=== PATIENT | female | born 1970 | race Caucasian/White ===

== ENCOUNTER → 2018-07-01 | Outpatient (CLI) | payer OTHER | END | disposition home or self-care (01) | LOC: CFH 14:56 | PROVIDERS: ATTEND Nurse Practitioner Family | DX: Z12.31 Encounter for screening mammogram for malignant neoplasm of breast (principal) | CPT/HCPCS: 77063; 77067 ==

== ENCOUNTER → 2018-07-14 | Outpatient (CLI) | payer OTHER | END | disposition home or self-care (01) | LOC: CFH 12:55 | PROVIDERS: ATTEND Nurse Practitioner Family | DX: N64.89 Other specified disorders of breast (principal) | CPT/HCPCS: 77065 ==

== ENCOUNTER 2018-07-28 08:29 | Outpatient (CLI) | payer OTHER ==
[2018-07-28] MEDS ORDERED: SODIUM BICARBONATE 4.2%, 5ML ONE (09:00)
[2018-07-28] MEDS ORDERED: LIDOCAINE 1%-EPI 1:100K, 20ML ONE (09:00)
[2018-07-28] MEDS ORDERED: LIDOCAINE 1%, 20ML ONE (09:00)
== END 2018-07-28 23:59 | disposition home or self-care (01) ==
LOC: CFH 08:29
PROVIDERS: ATTEND Nurse Practitioner Family
DX: N63.11 Unspecified lump in the right breast, upper outer quadrant (principal); N64.89 Other specified disorders of breast
CPT/HCPCS: 19083; 77065; 88305; J3490

== ENCOUNTER 2019-10-11 16:45 | Inpatient (IN) | payer OTHER ==
[~2019-10-11] VITALS: Ht 170.2 cm; Wt 110.6 kg
[2019-10-11] MEDS ORDERED: MORPHINE SULFATE 4 MG/ML, 1ML ONE ×3 (17:26→19:44)
[2019-10-11] MEDS ORDERED: ONDANSETRON 2MG/ML, 2ML ONE ×2 (17:26→21:51)
[2019-10-11] MEDS ORDERED: SODIUM CHLORIDE FLUSH 10ML SYR IVF ONE (17:30)
--- NOTE | 2019-10-11 17:30 | NUR ---
ERP WAS IN TO SEE PT. ORDER RC'VD TO START IV AND GIVE MORPHINE AND ZOFRAN, THEN PT WILL GO TO CT. REPORTED TO NIELS ALMONTE.
[2019-10-11 17:40] LABS: MEAN CORPUSCULAR HEMOGLOBIN 27.2 pg (27.0-34.8); MEAN CORPUSCULAR VOLUME 82.5 fL (80-100); MEAN PLATELET VOLUME 9.1 fL (7.4-10.4); PLATELET COUNT 305 x10^3/uL (130-400); RED BLOOD COUNT 4.59 x10^6/uL (3.82-5.3); RED CELL DISTRIBUTION WIDTH 15.7 % (9.6-15.2)
--- NOTE | 2019-10-11 17:44 | NUR ---
REPORT FROM GOLD ALMONTE. PT HERRE FOR ABD PAIN THAT RDIATES TO BACK. STARTED AT MIDNIGHT. PAIN IS 10/10. PT MEDICATED AND PLACED ON MONITORS. PT TO CT. SPOUSE AT BEDSIDE
[2019-10-11 17:47] LABS: ANION GAP 10 mmol/L (5-15); CALCIUM 9.1 mg/dL (8.5-10.1); CHLORIDE 102 mmol/L (98-107)
[2019-10-11 17:52] LABS: ALANINE AMINOTRANSFERASE 18 U/L (12-78); ALKALINE PHOSPHATASE 82 U/L (45-117); BILIRUBIN,TOTAL 0.8 mg/dL (0.2-1.0); CREATININE 1.01 mg/dL (0.55-1.02); TOTAL PROTEIN 8.3 g/dL (6.4-8.2); TROPONIN I < 0.015 ng/mL (0.000-0.045)
[2019-10-11] MEDS ORDERED: ONDANSETRON 2MG/ML, 2ML IVPush ONE (18:00)
[2019-10-11] MEDS ORDERED: MORPHINE SULFATE 4 MG/ML, 1ML IVPush ONE (18:00)
[2019-10-11 18:02] LABS: MD YES
[2019-10-11 18:05] LABS: BANDS%(MANUAL) 8 % (0-7); LYMPH#(MANUAL) 0.85 x10^3/uL (1-3.4); LYMPHS% (MANUAL) 4 % (22-44); MONOS#(MANUAL) 0.21 x10^3/uL (0.3-2.7); MONOS% (MANUAL) 1 % (2-9); SEG#(MANUAL) 18.53 x10^3/uL (1.8-6.8); SEGS% (MANUAL) 87 % (42-75)
[2019-10-11 18:06] LABS: <PLATELET ESTIMATE> ADEQUATE; <PLT MORPHOLOGY> NORMAL PLT MORPH; <RBC MORPHOLOGY> NORMAL
[2019-10-11] MEDS ORDERED: OMNIPAQUE 350 MG/ML, 100ML BOTTLE ONE (18:07)
[2019-10-11] MEDS: MORPHINE SULFATE 4 MG/ML, 1ML IVPush PRN ×2 (18:57→19:46)
--- NOTE | 2019-10-11 18:59 | NUR ---
BREAK RN: PT RESTING ON REMBERTO. FREDERIC. VSS. MEDICATED PER MAY. AWARE OF POC FOR ADMIT.
[2019-10-11] MEDS ORDERED: GABA800T5 PO (19:23)
[2019-10-11] MEDS ORDERED: CEFOTETAN PMX 1GM/50ML 50 ML ONE (19:27)
[2019-10-11] MEDS ORDERED: METRONIDAZOLE PMX 500MG/100ML 100 ML IV ONE (19:30)
[2019-10-11] MEDS ORDERED: CEFOTETAN PMX 1GM/50ML 50 ML IV ONE (19:30)
[2019-10-11] MEDS ORDERED: BUPIVACAINE/PF-EPI 0.5% 1:200K ONE (19:38)
--- NOTE | 2019-10-11 19:41 | NUR ---
REPORT TO OR. IFEANYI FLORES WALKED TO LAB. ABX RUNNING.
[2019-10-11] MEDS ORDERED: LABETALOL 5MG/ML, 20ML IV PRN (20:00)
[2019-10-11] MEDS ORDERED: ALBUTEROL SULFATE 2.5 MG/3 ML NPPB PRN (20:00)
[2019-10-11] MEDS ORDERED: MEPERIDINE/PF 25MG/0.5ML IVPush PRN (20:00)
[2019-10-11] MEDS ORDERED: ACETAMINOPHEN 325 MG TABLET PO PRN ×2 (20:00→23:45)
[2019-10-11] MEDS ORDERED: LORazepam 2 MG/ML, 1ML IVPush PRN (20:00)
[2019-10-11] MEDS ORDERED: PROMETHAZINE 25 MG/ML, 1ML IVPush PRN (20:00)
[2019-10-11] MEDS ORDERED: OXYcodone 5 MG/5 ML ORAL.SOL UDC PO PRN ×2 (20:00→23:45)
[2019-10-11] MEDS ORDERED: SUGAMMADEX 200 MG/2 ML IVPush ONE (20:27)
[2019-10-11] MEDS ORDERED: FENTANYL PF 100 MCG/2ML ONE ×3 (20:28→22:20)
[2019-10-11] MEDS ORDERED: DEXAMETHASONE 4 MG/ML, 1ML ONE (21:51)
[2019-10-11] MEDS ORDERED: SUCCINYLCHOLINE 20 MG/ML, 10ML ONE (21:51)
[2019-10-11] MEDS ORDERED: GLYCOPYRROLATE 0.2MG/1ML, 5ML ONE (21:51)
[2019-10-11] MEDS ORDERED: KETOROLAC 30 MG/1 ML ONE (21:51)
[2019-10-11] MEDS ORDERED: ROCURONIUM 10MG/ML,5ML ONE (21:51)
[2019-10-11] MEDS ORDERED: PROPOFOL 10 MG/ML, 20ML ONE (21:51)
[2019-10-11] MEDS ORDERED: LIDOCAINE-MPF 2% ,5ML ONE (21:51)
[2019-10-11] MEDS ORDERED: NEOSTIGMINE 1 MG/ML, 10ML ONE (21:51)
[2019-10-11] MEDS ORDERED: PROMETHAZINE 25 MG/ML, 1ML ONE (22:20)
[2019-10-11] MEDS ORDERED: HYDROmorphone 1 MG/ML, 1ML INJ ONE (22:20)
[2019-10-11] MEDS: FENTANYL PF 100 MCG/2ML IV PRN ×2 (22:37→22:43)
[2019-10-11] MEDS: HYDROmorphone 1 MG/ML, 1ML INJ IVPush PRN ×2 (22:50→22:58)
[2019-10-11] MEDS ORDERED: HYDROmorphone 2 MG/ML, 1ML IVPush PRN (23:45)
[2019-10-11] MEDS ORDERED: KETOROLAC 30 MG/1 ML IV PRN (23:45)
[2019-10-11] MEDS: LABETALOL 5MG/ML, 20ML IVPush SCH (23:45)
[2019-10-11] MEDS ORDERED: LACTATED RINGERS 500 ML IV PRN (23:45)
[2019-10-11] MEDS ORDERED: ONDANSETRON 2MG/ML, 2ML IV PRN (23:45)
[2019-10-11] MEDS ORDERED: DIPHENHYDRAMINE 25 MG CAPSULE PO PRN (23:45)
[2019-10-11] MEDS ORDERED: SODIUM CHLORIDE 0.9%, 500ML IV PRN (23:45)
[2019-10-11] MEDS ORDERED: ACETAMINOPHEN 650 MG SUPP PR PRN (23:45)
[2019-10-11] MEDS ORDERED: DIPHENHYDRAMINE 50 MG/ML, 1ML IV PRN (23:45)
[2019-10-11] MEDS ORDERED: ENOXAPARIN 40 MG/0.4 ML SQ SCH (23:45)
[2019-10-12] MEDS ORDERED: SODIUM CHLORIDE 0.9%, 500ML IVBOLUS PRN
[2019-10-12] MEDS ORDERED: LACTATED RINGERS 500 ML IVBOLUS PRN
[2019-10-12] MEDS ORDERED: CEFOTETAN PMX 2GM/50ML 50 ML IVPB SCH
[2019-10-12 01:19] VITALS: BP 121/69
[2019-10-12] MEDS: D5%-0.45NACL+KCL 20MEQ 1,000 ML IV SCH ×2 (01:48→11:48)
[2019-10-12 05:26] VITALS: BP 107/63
[2019-10-12 05:46] LABS: MEAN CORPUSCULAR HEMOGLOBIN 26.9 pg (27.0-34.8); MEAN CORPUSCULAR HGB CONC 32.3 g/dL (32.4-35.8); MEAN CORPUSCULAR VOLUME 83.3 fL (80-100); MEAN PLATELET VOLUME 9.2 fL (7.4-10.4); PLATELET COUNT 258 x10^3/uL (130-400); RED BLOOD COUNT 3.94 x10^6/uL (3.82-5.3); RED CELL DISTRIBUTION WIDTH 15.9 % (9.6-15.2)
[2019-10-12 05:56] LABS: ALBUMIN 3.3 g/dL (3.4-5.0); ANION GAP 9 mmol/L (5-15); CALCIUM 8.6 mg/dL (8.5-10.1); CHLORIDE 103 mmol/L (98-107)
[2019-10-12 06:00] LABS: ALANINE AMINOTRANSFERASE 33 U/L (12-78); ALKALINE PHOSPHATASE 68 U/L (45-117); BILIRUBIN,TOTAL 0.8 mg/dL (0.2-1.0); CREATININE 0.93 mg/dL (0.55-1.02)
[2019-10-12 06:08] LABS: BASOPHILS # (AUTO) 0.01 x10^3/uL (0-0.1); BASOPHILS % (AUTO) 0 % (0-1); EOSINOPHILS % (AUTO) 0 % (1-7); LYMPHOCYTES # (AUTO) 0.62 x10^3/uL (1-3.4); LYMPHOCYTES % (AUTO) 3 % (22-44); MD SCAN; MONOCYTES # (AUTO) 0.59 x10^3/uL (0.2-0.8); MONOCYTES % (AUTO) 3 % (2-9); NEUTROPHILS # (AUTO) 18.23 x10^3/uL (1.8-6.8); NEUTROPHILS % (AUTO) 94 % (42-75)
[2019-10-12 06:25] VITALS: BP 131/82
[2019-10-12] MEDS: LABETALOL 5MG/ML, 20ML IVPush SCH (07:45)
[2019-10-12] MEDS ORDERED: OXYC5CAP2 PO (09:19)
[2019-10-12] MEDS ORDERED: DOCU-131 PO (09:20)
[2019-10-12] MEDS ORDERED: IBUP-1223 PO (09:21)
[2019-10-12] MEDS ORDERED: ACET-2065 PO (09:22)
[2019-10-12 12:13] VITALS: BP 130/73
== END 2019-10-12 13:35 | disposition home or self-care (01) | DRG 419 ==
LOC: OR 19:44 → EDIP 20:47 → 4NE 23:30 → DCLOUNGE 10-12 13:17
PROVIDERS: ADMIT Student in an Organized Health Care Education/Training Program; ATTEND Student in an Organized Health Care Education/Training Program
PROC: 0FT44ZZ Resection of Gallbladder, Percutaneous Endoscopic Approach (ICD-10-PCS; principal; 2019-10-11 20:00)
DX: K80.00 Calculus of gallbladder with acute cholecystitis without obstruction (principal); K44.9 Diaphragmatic hernia without obstruction or gangrene; K42.9 Umbilical hernia without obstruction or gangrene; M54.30 Sciatica, unspecified side; Z90.49 Acquired absence of other specified parts of digestive tract
CPT/HCPCS: 36415; J3490; 71045; 71275; 74175; 80053; 83690; 84484; 85025; 87635; 88304; 93005; G0378; J1100; J1170; J1650; J1885; J2405; J2704; J2710; J3010; Q9967; J0330; J2270; J3480